=== PATIENT | female | born 1955 | race Caucasian/White ===

== ENCOUNTER → 2024-06-29 | Outpatient (CLI) | payer MEDICARE | END | disposition home or self-care (01) | LOC: SHCH 13:21 | PROVIDERS: ATTEND Internal Medicine Cardiovascular Disease | DX: I70.293 Other atherosclerosis of native arteries of extremities, bilateral legs (principal); I87.2 Venous insufficiency (chronic) (peripheral); I77.1 Stricture of artery; I87.1 Compression of vein | CPT/HCPCS: 93925; 93970 ==

== ENCOUNTER → 2024-08-10 | Outpatient (CLI) | payer MEDICARE ==
--- NOTE | 2024-08-11 10:25 | HMCSR ---
APPROVED REPORT EXAM: Two-dimensional and M-mode echocardiogram with Doppler and color Doppler. INDICATION ICD: R06.9 Unspecified abnormalities of breathing 2D Dimensions RVDd4.0 cmLVEF(%)55.8 (>50%)LVED Vol(simp.)64.0 mL IVSd0.8 (0.7-1.1cm)FS(%)29 %LVES Vol(simp.)27.0 mL LVDd4.3 (3.8-5.6cm)LA (2D)4.4 (1.6-4.0cm)LVEF(%, simp.)58 % PWd0.7 (0.7-1.1cm)Ao Root(2D)2.5 (2.0-3.7cm)LA ESV INDEX (BP)29.75 mL/m2 LVDs3.1 (2.5-4.0cm)LVOT diam1.8 (1.8-2.4cm) IVC diam1.3 cm Deformation Strain Apical 4-18.0 % Apical 2-16.6 % Apical 3-17.3 % Global Strain-17.3 % Aortic Valve AoV Vmax1.7 m/Jey Peak GR11.1 mmHgLVOT Vmax1.1 m/s AoV VTI0.3 mAo Mean GR5.3 mmHgLVOT VTI0.24 m ERIKA (VMAX)1.9 cm2AVA (VTI) 1.9 cm2 Mitral Valve MV E Vmax83.4 cm/sDECEL Ohih366 ms MV A Wjxf613.9 cm/sP 1/2 T53 ms E/A ratio0.8MVA (PHT)4.1 cm2 MR Max PG69 mmHg TDI E/E' Tpplij06.0E/E' Kkinuuq02.0 Pulmonary Valve PV Vmax1.1 m/sPV VTI0.28 mPV Mean GR3 mmHg PV Peak GR5.1 mmHg Tricuspid Valve TR Vmax2.9 m/sRAP (EST) 3 ncPvZNQP73.3 mmHg TR Peak GR33.3 mmHg Left Ventricle The left ventricle structure and function is normal. There is normal LV segmental wall motion. There is normal left ventricular wall thickness. LVEF is 55-60%. Grade 1 diastolic dysfunction Right Ventricle The right ventricle is borderline dilated. The right ventricular systolic function is normal. Atria The left atrium size is normal. The right atrium is mildly dilated. Aortic Valve Aortic valve is trileaflet. Aortic valve leaflets are sclerotic but open well. Trace aortic regurgita tion. There is no aortic valvular stenosis. Mitral Valve Mitral valve leaflets are mildly sclerotic but open well. Mitral regurgitation is trace to mild. Ther e is no mitral valve stenosis. Tricuspid Valve The tricuspid valve leaflets appear normal. There is trace to mild tricuspid regurgitation. Right damien tricular systolic pressure is estimated at 30-40 mmHg. Pulmonic Valve The pulmonic valve leaflets are thin and pliable; valve motion is normal. There is trace pulmonic sadiq vular regurgitation. Great Vessels The aortic root is normal in size. The IVC is normal in size and collapses >50% with inspiration. Pericardium No pericardial effusion. Conclusion LVEF is 55-60%. Grade 1 diastolic dysfunction There is normal LV segmental wall motion. The aortic root is normal in size. No pericardial effusion.
== END | disposition home or self-care (01) ==
LOC: SHCH 11:15
PROVIDERS: ATTEND Internal Medicine Cardiovascular Disease
DX: I08.3 Combined rheumatic disorders of mitral, aortic and tricuspid valves (principal); R06.9 Unspecified abnormalities of breathing
CPT/HCPCS: 93306; 93356